=== PATIENT | male | born 1985 | race Caucasian/White ===

== ENCOUNTER 2023-06-25 10:36 | Emergency (ER) | payer MEDICAID ==
[~2023-06-25] VITALS: Ht 182.9 cm; Wt 98.7 kg
[2023-06-25 11:54] VITALS: BP 116/76; PULSE 85; RESP 16; TEMP 98.9; O2SAT 96
== END 2023-06-25 12:32 | disposition home or self-care (01) ==
LOC: ER 10:36
DX: S66.911A Strain of unspecified muscle, fascia and tendon at wrist and hand level, right hand, initial encounter (principal); F17.210 Nicotine dependence, cigarettes, uncomplicated; F12.10 Cannabis abuse, uncomplicated; F15.10 Other stimulant abuse, uncomplicated; W18.39XA Other fall on same level, initial encounter; Y93.55 Activity, bike riding; Y92.89 Other specified places as the place of occurrence of the external cause; Y99.8 Other external cause status
CPT/HCPCS: 73100